=== PATIENT | male | born 1980 | race Caucasian/White ===

== ENCOUNTER 2017-05-15 00:58 | Emergency (ER) | payer SELFPAY ==
[2017-05-15] MEDS ORDERED: IBUPROFEN 600 MG TABLET PO ONE (01:20)
--- NOTE | 2017-05-15 02:02 | RADIOLOGY REPORT (SQ) ---
EXAM DESCRIPTION: KNEE LEFT 3 VIEWS CLINICAL HISTORY: pain COMPARISON: None. FINDINGS: 3 views of the left knee. No acute fracture or dislocation. Large joint effusion. Soft tissue edema. Normal osseous mineralization. IMPRESSION: 1. No acute fracture. 2. Large joint effusion. Correlation with MRI would provide additional characterization if there is concern for internal derangement.
--- NOTE | 2017-05-15 02:10 | ER Document Report ---
ED General - General Chief Complaint: Knee Pain Stated Complaint: LEFT KNEE PAIN Time Seen by Provider: 05/15/17 01:20 Notes: Patient is a 36-year-old male with a past medical history of a prior left knee ACL tear that was never repaired who presents with acute onset of severe left knee pain. He does describe a constant, dull, throbbing pain to the left knee with associated swelling. Pain is worsened by walking. He has not tried anything for improvement of the pain. States the pain did start after some [employer] jumped on his back causing his left knee to twist. He did not sustain any additional injuries. He denies any associated weakness or numbness. No direct blow or trauma to the knee itself. - Related Data Allergies/Adverse Reactions: No Known Allergies Allergy (Unverified 05/15/17 01:00) Past Medical History - General Information source: Patient - Social History Smoking Status: Current Every Day Smoker Frequency of alcohol use: Occasional Drug Abuse: None Lives with: Family Family History: Reviewed & Not Pertinent Patient has suicidal ideation: No Patient has homicidal ideation: No Renal/ Medical History: Denies: Hx Peritoneal Dialysis Review of Systems - Review of Systems Notes: Constitutional: Negative for fever. Eyes: Negative for visual changes. ENT: Negative for facial injury Cardiovascular: Negative for chest injury. Respiratory: Negative for shortness of breath. Gastrointestinal: Negative for abdominal injury. Genitourinary: Negative for genital injury Musculoskeletal: Positive for left knee pain Skin: Negative for laceration/abrasions. Neurological: Negative for head injury. Physical Exam - Vital signs Vitals: Temp Pulse Resp BP Pulse Ox 98.5 F 119 H 18 139/95 H 98 05/15/17 01:00 05/15/17 01:00 05/15/17 01:00 05/15/17 01:00 05/15/17 01:00 Interpretation: Tachycardic Notes: PHYSICAL EXAMINATION: GENERAL: Well-appearing, well-nourished and in no acute distress. HEAD: Atraumatic, normocephalic. EYES: sclera anicteric, conjunctiva are normal. ENT: Moist mucous membranes. NECK: Normal range of motion LUNGS: Normal work of breathing HEART: 2+ DP pulses bilaterally EXTREMITIES: Notable swelling of the left knee more prominent towards the medial aspect of the knee. Limited range of motion secondary to pain. There is anterior laxity. No obvious deformity. NEUROLOGICAL: No focal neurological deficits. Moves all extremities spontaneously and on command. PSYCH: Normal mood, normal affect. SKIN: Warm, Dry, normal turgor, no rashes or lesions noted. Course - Re-evaluation Re-evalutation: 05/15/17 02:10 Patient presents with signs and symptoms most consistent with likely ligamentous tear of the left knee with a known history of a prior ACL tear that was unrepaired. He has limited flexion extension of the knee but is able to bear weight. 2+ DP pulse. No additional injury. X-ray is without any evidence of an acute fracture or dislocation. I have encouraged him to follow- up with orthopedic surgery for an MRI and discussion of possible surgical management. In the meantime will start on NSAIDs, he has been placed in a knee immobilizer, crutches, as encouraged to ice the area regularly and keep it elevated. Return precautions have been discussed - Vital Signs Vital signs: Temp Pulse Resp BP Pulse Ox 98.5 F 119 H 18 139/95 H 98 05/15/17 01:00 05/15/17 01:00 05/15/17 01:00 05/15/17 01:00 05/15/17 01:00 - Diagnostic Test Radiology reviewed: Image reviewed, Reports reviewed Radiology results interpreted by me: 05/15/17 02:27 Left knee x-ray: Joint effusion. No fracture or dislocation Discharge - Discharge Clinical Impression: Left knee injury Qualifiers: Encounter type: initial encounter Qualified Code(s): S89.92XA - Unspecified injury of left lower leg, initial encounter Condition: Good Disposition: HOME, SELF-CARE Additional Instructions: Your x-ray does not show any acute fracture today. You likely have a ligamentous injury and should follow-up with an orthopedic surgeon for consideration of an MRI. You should continue to take anti-inflammatories such as ibuprofen 600 mg every 6 hours. Continue to apply ice to the area is much your able. Please return immediately if you develop weakness, numbness, spreading redness from the area, or any other symptoms that are concerning to you. Forms: Return to Work Referrals: AMY MANN MD [ACTIVE STAFF] - Follow up in 1 week
[2017-05-15 02:41] VITALS: BP 138/87
== END 2017-05-15 02:39 | disposition home or self-care (01) ==
LOC: ER 00:58
DX: S89.92XA Unspecified injury of left lower leg, initial encounter (principal); F17.200 Nicotine dependence, unspecified, uncomplicated; X58.XXXA Exposure to other specified factors, initial encounter
CPT/HCPCS: 99283